=== PATIENT | female | born 1990 | race Caucasian/White ===

== ENCOUNTER 2018-07-17 23:20 | Outpatient (CLI) | payer MEDICAID, BC ==
[2018-07-18 01:02] LABS: ADD MAN DIFF? NO
[2018-07-18 01:09] LABS: BASOPHILS % 0.4 % (0.0-2.0); EOSINOPHILS # 0.1 10^3/ul (0.0-0.5); EOSINOPHILS % 1.3 % (0.0-7.0); HEMATOCRIT 36.6 % (37.0-47.0); HEMOGLOBIN 12.3 g/dl (12.0-16.0); LYMPHOCYTES # 1.6 10^3/ul (0.8-2.9); LYMPHOCYTES % 28.8 % (15.0-51.0); MEAN CORPUSCULAR HEMOGLOBIN 30.9 pg (29.0-33.0); MEAN CORPUSCULAR HGB CONC 33.6 g/dl (32.0-37.0); MEAN PLATELET VOLUME 10.7 fl (7.4-10.4); MONOCYTE # 0.4 10^3/ul (0.3-0.9); MONOCYTES % 6.3 % (0.0-11.0); NEUTROPHIL # 3.5 10^3/ul (1.6-7.5); NEUTROPHILS % 62.8 % (39.0-77.0); PLATELET COUNT 168 10^3/UL (140-415); RED BLOOD COUNT 3.98 10^6/ul (4.20-5.40); RED CELL DISTRIBUTION WIDTH 12.2 % (11.5-14.5)
[2018-07-18 01:09] LABS: WHITE BLOOD COUNT 5.5 10^3/ul (4.8-10.8)
[2018-07-18 01:16] LABS: ADD UMIC YES; UR ASCORBIC ACID NEGATIVE (NEGATIVE); UR BACTERIA FEW /HPF (NONE SEEN); UR BILIRUBIN (Dip) NEGATIVE (NEGATIVE); UR BLOOD (Dip) NEGATIVE (NEGATIVE); UR CLARITY SLIGHTLY CLOUDY (CLEAR); UR COLOR YELLOW (YELLOW); UR GLUCOSE (Dip) NEGATIVE (NEGATIVE); UR KETONES (Dip) NEGATIVE (NEGATIVE); UR LEUKOCYTE ESTERASE (Dip) 2+ Leu/ul (NEGATIVE); UR NITRITE (Dip) NEGATIVE (NEGATIVE); UR RBC 1 /HPF (0-5); UR SPECIFIC GRAVITY (Dip) 1.006 (1.003-1.030); UR SQUAMOUS EPITHELIAL CELL FEW /HPF (FEW); UR TOTAL PROTEIN (Dip) NEGATIVE (NEGATIVE); UR UROBILINOGEN (Dip) NEGATIVE (NEGATIVE); UR WBC 2 /HPF (0-5)
[2018-07-18 01:28] LABS: ALANINE AMINOTRANSFERASE 27 IU/L (13-69); ALBUMIN 3.2 g/dl (3.3-4.9); ALBUMIN/GLOBULIN RATIO 1.06; ALKALINE PHOSPHATASE 284 IU/L (42-121); ANION GAP 8 (5-13); ASPARTATE AMINO TRANSFERASE 31 IU/L (15-46); BILIRUBIN,INDIRECT 0.1 mg/dl (0-1.1); BILIRUBIN,TOTAL 0.1 mg/dl (0.2-1.3); BLOOD UREA NITROGEN 9 mg/dl (7-20); CALCIUM 8.7 mg/dl (8.4-10.2); CARBON DIOXIDE 21 mmol/L (21-31); CHLORIDE 107 mmol/L (97-110); CREATININE 0.49 mg/dl (0.44-1.00); Estimated GFR > 60 mL/min (>60); GLUCOSE 80 mg/dl (70-220); POTASSIUM 3.5 mmol/L (3.5-5.1); SODIUM 136 mmol/L (135-144); TOTAL PROTEIN 6.2 g/dl (6.1-8.1); URIC ACID 5.3 mg/dl (3.1-7.9)
[2018-07-18 01:30] LABS: INR 0.87; PARTIAL THROMBOPLASTIN TIME 28.1 Sec (23.0-35.0); PROTIME 11.9 Sec (11.9-14.9); PT RATIO 0.9
[2018-07-18 02:35] LABS: FIBRIN SPLIT PRODUCT <10 ug/ml (<10)
== END 2018-07-18 02:45 | disposition home or self-care (01) ==
LOC: OBT 23:20 → L-D 23:20 → OBT 07-18 02:45
DX: O36.8130 Decreased fetal movements, third trimester, not applicable or unspecified (principal); Z3A.37 37 weeks gestation of pregnancy
CPT/HCPCS: 76815; 76818; 80053; 81001; 84560; 85025; 85362; 85384; 85610; 85730

== ENCOUNTER 2018-07-24 06:38 | Inpatient (IN) | payer MEDICAID ==
[2018-07-24] MEDS ORDERED: METHYLERGONOVINE 0.2 MG INJ IM ×2 (07:30→11:30)
[2018-07-24] MEDS ORDERED: BUTORPHANOL 2 MG INJ IV (07:30)
[2018-07-24] MEDS ORDERED: MISOPROSTOL 200 MCG TAB PR ×2 (07:30→11:30)
[2018-07-24] MEDS: MINERAL OIL LIGHT 10 ML VIAL TOP (07:30)
[2018-07-24] MEDS ORDERED: LIDOCAINE 1% (MPF) 30 ML INJ INJ (07:30)
[2018-07-24] MEDS ORDERED: CARBOPROST 250 MCG INJ IM ×2 (07:30→11:30)
[2018-07-24] MEDS ORDERED: OXYTOCIN 30 UNITS/LR 500 ML IV ×3 (07:30→11:30)
[2018-07-24 08:01] LABS: ADD MAN DIFF? NO
[2018-07-24 08:10] LABS: BASOPHILS % 0.4 % (0.0-2.0); EOSINOPHILS # 0.1 10^3/ul (0.0-0.5); EOSINOPHILS % 1.6 % (0.0-7.0); HEMOGLOBIN 13.5 g/dl (12.0-16.0); LYMPHOCYTES # 2.1 10^3/ul (0.8-2.9); LYMPHOCYTES % 28.7 % (15.0-51.0); MEAN CORPUSCULAR HEMOGLOBIN 30.8 pg (29.0-33.0); MEAN CORPUSCULAR HGB CONC 34.6 g/dl (32.0-37.0); MONOCYTE # 0.6 10^3/ul (0.3-0.9); MONOCYTES % 8.1 % (0.0-11.0); NEUTROPHIL # 4.4 10^3/ul (1.6-7.5); NEUTROPHILS % 60.5 % (39.0-77.0); PLATELET COUNT 185 10^3/UL (140-415); RED BLOOD COUNT 4.38 10^6/ul (4.20-5.40); RED CELL DISTRIBUTION WIDTH 12.2 % (11.5-14.5)
[2018-07-24 08:10] LABS: WHITE BLOOD COUNT 7.3 10^3/ul (4.8-10.8)
[2018-07-24 08:30] LABS: INR 0.85; PARTIAL THROMBOPLASTIN TIME 26.9 Sec (23.0-35.0); PROTIME 11.7 Sec (11.9-14.9); PT RATIO 0.9
[2018-07-24] MEDS: LACTATED RINGER'S 1,000 ML IV ×3 (08:40→15:45)
[2018-07-24] MEDS ORDERED: CEFAZOLIN 2 GM/50 ML (PMX) 50 ML IVPB (09:07)
[2018-07-24 09:12] LABS: HEPATITIS B SURFACE ANTIGEN NEGATIVE (NEGATIVE)
[2018-07-24] MEDS ORDERED: OXYTOCIN 30 UNITS/LR 0 ML IV (09:45)
[2018-07-24] MEDS ORDERED: ONDANSETRON 4 MG INJ (09:45)
[2018-07-24] MEDS ORDERED: morphine SULFATE/PF (10 MG/10 ML) INJ (09:45)
[2018-07-24] MEDS ORDERED: METOCLOPRAMIDE 10 MG INJ (09:45)
[2018-07-24] MEDS ORDERED: OXYTOCIN 10 UNIT INJ ×2 (09:46→10:32)
[2018-07-24 09:50] LABS: ALANINE AMINOTRANSFERASE 45 IU/L (13-69); ALBUMIN 3.4 g/dl (3.3-4.9); ALBUMIN/GLOBULIN RATIO 1.25; ALKALINE PHOSPHATASE 319 IU/L (42-121); ANION GAP 10 (5-13); ASPARTATE AMINO TRANSFERASE 48 IU/L (15-46); BILIRUBIN,INDIRECT 0.1 mg/dl (0-1.1); BILIRUBIN,TOTAL 0.1 mg/dl (0.2-1.3); BLOOD UREA NITROGEN 13 mg/dl (7-20); CALCIUM 8.9 mg/dl (8.4-10.2); CARBON DIOXIDE 21 mmol/L (21-31); CHLORIDE 107 mmol/L (97-110); CREATININE 0.54 mg/dl (0.44-1.00); Estimated GFR > 60 mL/min (>60); GLUCOSE 81 mg/dl (70-220); SODIUM 138 mmol/L (135-144); TOTAL PROTEIN 6.1 g/dl (6.1-8.1); URIC ACID 5.2 mg/dl (3.1-7.9)
[2018-07-24] MEDS: CEFAZOLIN 2 GM/50 ML (PMX) 50 ML IVPB (09:50)
[2018-07-24 10:30] LABS: ADD UMIC YES; UR ASCORBIC ACID NEGATIVE (NEGATIVE); UR BACTERIA FEW /HPF (NONE SEEN); UR BILIRUBIN (Dip) NEGATIVE (NEGATIVE); UR BLOOD (Dip) 2+ mg/dL (NEGATIVE); UR CLARITY TURBID (CLEAR); UR COLOR RED (YELLOW); UR GLUCOSE (Dip) NEGATIVE (NEGATIVE); UR KETONES (Dip) NEGATIVE (NEGATIVE); UR LEUKOCYTE ESTERASE (Dip) 2+ Leu/ul (NEGATIVE); UR MUCUS FEW /HPF (NONE SEEN); UR NITRITE (Dip) NEGATIVE (NEGATIVE); UR RBC 63 /HPF (0-5); UR SPECIFIC GRAVITY (Dip) 1.012 (1.003-1.030); UR SQUAMOUS EPITHELIAL CELL MANY /HPF (FEW); UR TOTAL PROTEIN (Dip) 2+ mg/dl (NEGATIVE); UR UROBILINOGEN (Dip) NEGATIVE (NEGATIVE); UR WBC 64 /HPF (0-5)
[2018-07-24] MEDS ORDERED: EPHEDrine 25 MG/5 ML SYG (10:32)
[2018-07-24] MEDS ORDERED: MIDAZOLAM 1 MG/ML 2 ML INJ (10:34)
[2018-07-24] MEDS: DEXTROSE 5%-LR 1,000 ML IV ×2 (11:18→19:18)
[2018-07-24] MEDS: OXYTOCIN 30 UNITS/LR 500 ML IV ×2 (11:25→15:26)
[2018-07-24] MEDS ORDERED: METHYLERGONOVINE 0.2 MG TAB PO (11:30)
[2018-07-24] MEDS ORDERED: ONDANSETRON 4 MG INJ IV (12:00)
[2018-07-24] MEDS: morphine SULFATE/PF (10 MG/10 ML) INJ SPINAL (12:00)
[2018-07-24] MEDS ORDERED: NALOXONE (0.4 MG/ML) INJ IV (12:00)
[2018-07-24] MEDS ORDERED: EPHEDrine SULFATE 50 MG/5 ML SYG IV (12:00)
[2018-07-24] MEDS ORDERED: morphine 2 MG INJ IV ×2 (12:00)
[2018-07-24] MEDS ORDERED: DIPHENHYDRAMINE 50 MG INJ IV (12:00)
[2018-07-24] MEDS: KETOROLAC 30 MG INJ IV (13:20)
[2018-07-24] MEDS: MAGNESIUM SULFATE 4 GM/100 ML 100 ML IV (13:28)
[2018-07-24] MEDS: MAGNESIUM SULFATE 20 GM/500 ML 500 ML IV ×2 (13:57→23:40)
[2018-07-24] MEDS: IBUPROFEN 800 MG TAB PO ×2 (14:00→21:27)
[2018-07-24 19:55] LABS: RAPID PLASMA REAGIN NONREACTIVE (NR)
[2018-07-24] MEDS: SENNA/DOCUSATE NA (8.6MG/50MG) TAB PO (21:06)
[2018-07-25 01:30] LABS: MAGNESIUM 6.3 mg/dl (1.7-2.5)
[2018-07-25] MEDS: DEXTROSE 5%-LR 1,000 ML IV (03:18)
[2018-07-25] MEDS: LACTATED RINGER'S 1,000 ML IV (04:53)
[2018-07-25] MEDS: IBUPROFEN 800 MG TAB PO ×3 (05:57→21:54)
[2018-07-25 07:19] LABS: ADD MAN DIFF? NO
[2018-07-25 07:23] LABS: BASOPHILS % 0.2 % (0.0-2.0); EOSINOPHILS # 0.1 10^3/ul (0.0-0.5); EOSINOPHILS % 0.9 % (0.0-7.0); HEMATOCRIT 36.1 % (37.0-47.0); HEMOGLOBIN 12.2 g/dl (12.0-16.0); LYMPHOCYTES # 1.3 10^3/ul (0.8-2.9); LYMPHOCYTES % 14.8 % (15.0-51.0); MEAN CORPUSCULAR HGB CONC 33.8 g/dl (32.0-37.0); MEAN CORPUSCULAR VOLUME 91.6 fl (82.0-101.0); MEAN PLATELET VOLUME 10.4 fl (7.4-10.4); MONOCYTE # 0.4 10^3/ul (0.3-0.9); MONOCYTES % 5.1 % (0.0-11.0); NEUTROPHIL # 6.8 10^3/ul (1.6-7.5); NEUTROPHILS % 78.9 % (39.0-77.0); PLATELET COUNT 183 10^3/UL (140-415); RED BLOOD COUNT 3.94 10^6/ul (4.20-5.40); RED CELL DISTRIBUTION WIDTH 12.4 % (11.5-14.5)
[2018-07-25 07:23] LABS: WHITE BLOOD COUNT 8.7 10^3/ul (4.8-10.8)
[2018-07-25 07:49] LABS: MAGNESIUM 6.4 mg/dl (1.7-2.5)
[2018-07-25] MEDS: SENNA/DOCUSATE NA (8.6MG/50MG) TAB PO ×2 (09:29→21:54)
[2018-07-25] MEDS: MAGNESIUM SULFATE 20 GM/500 ML 500 ML IV (10:34)
[2018-07-25] MEDS ORDERED: HYDROCODONE/APAP (5/325) TAB NGT (11:00)
[2018-07-25] MEDS ORDERED: DIPHTH/TET/ACEL PERTUSS (ADULT) 0.5 ML VIAL IM* (11:00)
[2018-07-25 12:14] LABS: MAGNESIUM 5.8 mg/dl (1.7-2.5)
[2018-07-25] MEDS: HYDROCODONE/APAP (5/325) TAB PO (12:47)
[2018-07-25] MEDS: LANOLIN HPA 1 PKT TOP (12:47)
[2018-07-25] MEDS ORDERED: HYDROCODONE/APAP (5/325) TAB GTB (14:00)
[2018-07-26] MEDS: HYDROCODONE/APAP (5/325) TAB PO ×3 (00:27→23:47)
[2018-07-26] MEDS: IBUPROFEN 800 MG TAB PO ×3 (05:37→21:57)
[2018-07-26 07:59] LABS: MAGNESIUM 2.3 mg/dl (1.7-2.5)
[2018-07-26] MEDS: SENNA/DOCUSATE NA (8.6MG/50MG) TAB PO ×2 (08:57→21:57)
[2018-07-26] MEDS: LANOLIN HPA 1 PKT TOP (15:56)
[2018-07-27] MEDS: IBUPROFEN 800 MG TAB PO (05:54)
[2018-07-27] MEDS: HYDROCODONE/APAP (5/325) TAB PO (08:45)
[2018-07-27] MEDS: SENNA/DOCUSATE NA (8.6MG/50MG) TAB PO (09:00)
[2018-07-27] MEDS: MEASLES,MUMPS,RUBELLA VACCINE INJ SC* (09:00)
[2018-07-27] MEDS: DIPHTH/TET/ACEL PERTUSS (ADULT) 0.5 ML VIAL IM* (09:00)
== END 2018-07-27 13:40 | disposition home or self-care (01) | DRG 785 ==
LOC: OBT 06:38 → L-D 06:38 → OBT 07:11 → L-D 07:02 → PP1 15:11
PROVIDERS: Specialist
PROC: 10D00Z1 Extraction of Products of Conception, Low, Open Approach (ICD-10-PCS; principal; 2018-07-26)
PROC: 0UL70ZZ Occlusion of Bilateral Fallopian Tubes, Open Approach (ICD-10-PCS; 2018-07-26)
DX: O76 Abnormality in fetal heart rate and rhythm complicating labor and delivery (principal); Z30.2 Encounter for sterilization; Z3A.38 38 weeks gestation of pregnancy; Z37.0 Single live birth
CPT/HCPCS: 80053; 81001; 83735; 84560; 85025; 85384; 85610; 85730; 86592; 86850; 86900; 86901; 87340; 88302; 99464